=== PATIENT | female | born 1950 | race Caucasian/White ===

== ENCOUNTER 2019-05-25 21:29 | Emergency (ER) | payer OTHER ==
--- NOTE | 2019-05-25 21:53 | ED Physician Documentation ---
General Adult - HISTORIAN Historian: patient - HPI Stated Complaint: Rt foot pain from Plantars Wart Tx Chief Complaint: Foot Injury Onset: hours (5) Timing: still present Severity: mild Further Comments: yes (She reports swelling in right foot after a procedure from her poditirist and she is worried she has an infection. She had two warts removed and she was told to open the warts with a needle and now one day post using her needle to open she has had some mild pain and swelling. She denies a fever.) - ROS CONST: no problems - PAST HX Past History: asthma, other (allergies ) Immunizations: UTD Allergies/Adverse Reactions: Allergies Allergy/AdvReac Type Severity Reaction Status Date / Time guaifenesin [From Mucinex] Allergy Verified 05/25/19 21:52 Iodinated Contrast- Oral and Allergy Verified 05/25/19 21:52 IV Dye morphine Allergy Verified 05/25/19 21:52 Sulfa (Sulfonamide Allergy Verified 05/25/19 21:52 Antibiotics) Home Medications: Ambulatory Orders Medication Instructions Recorded Albuterol Sulfate [Ventolin HFN] 2.5 mg IH DAILY 05/25/19 Ascorbic Acid [Vitamin C] 1,000 mg PO DAILY 05/25/19 Calcium Carbonate [Calcium] 600 mg PO DAILY 05/25/19 Cetirizine HCl [Zyrtec] 10 mg PO DAILY 05/25/19 Cholecalciferol [Vitamin D-3] 1,000 unit PO DAILY 05/25/19 Mometasone/Formoterol [Dulera 100 200 mcg NA DAILY 05/25/19 Mcg/5 Mcg Inhaler] Montelukast Sodium [Singulair] 10 mg PO DAILY 05/25/19 Omeprazole 40 mg PO BID PRN 05/25/19 - SOCIAL HX Smoking History: non-smoker Alcohol Use: none Drug Use: none - FAMILY HX Family History: No - VITAL SIGNS Vital Signs: Vital Signs Temp Pulse Resp BP Pulse Ox 98.1 F 88 14 150/85 98 05/25/19 21:29 05/25/19 21:29 05/25/19 21:29 05/25/19 21:29 05/25/19 21:29 - REVIEWED ASSESSMENTS Nursing Assessment Reviewed: Yes Vitals Reviewed: Yes General Adult Physical Exam - PHYSICAL EXAM GENERAL APPEARANCE: no distress EENT: eye inspection normal, no signs of dehydration NECK: normal inspection RESPIRATORY: no resp distress, chest non-tender, breath sounds normal CVS: reg rate & rhythm, heart sounds normal BACK: normal inspection SKIN: warm/dry, other (mild redness on right great toe. two areas of healing on palmar side of foot ) EXTREMITIES: non-tender NEURO: oriented X3 Discharge Clincal Impression: Cellulitis Qualifiers: Site of cellulitis: extremity Site of cellulitis of extremity: toe Laterality: right Qualified Code(s): L03.031 - Cellulitis of right toe Referrals: Whitney Roblero FNP [Primary Care Provider] - 2 Days Comments: 1. Clindamycin 300 mg take 1 by mouth four times per day 2. Keep foot elevated 3. Follow up with PCP in 2 days 4. Return to ER for any concerns Condition: Stable Disposition: 01 HOME, SELF-CARE Decision to Admit: NO Date of Decison to Admit: 05/25/19 Decision Time: 22:11
[2019-05-25] MEDS ORDERED: CLINDAMYCIN HCL 150 MG CAPSULE PO ONE (21:59)
[2019-05-25 22:24] VITALS: BP 136/82
== END 2019-05-25 22:15 | disposition home or self-care (01) ==
LOC: ED 21:29
DX: L03.031 Cellulitis of right toe (principal)
CPT/HCPCS: 99283; A9270